=== PATIENT | male | born 1995 | race Caucasian/White ===

== ENCOUNTER 2021-04-27 19:29 | Emergency (ER) | payer OTHER ==
[~2021-04-27] VITALS: Ht 172.7 cm; Wt 69.4 kg
== END 2021-04-27 22:45 | disposition home or self-care (01) ==
LOC: ER 19:29
DX: S06.0X1A Concussion with loss of consciousness of 30 minutes or less, initial encounter (principal); S01.411A Laceration without foreign body of right cheek and temporomandibular area, initial encounter; S46.911A Strain of unspecified muscle, fascia and tendon at shoulder and upper arm level, right arm, initial encounter; W22.8XXA Striking against or struck by other objects, initial encounter; Y92.39 Other specified sports and athletic area as the place of occurrence of the external cause
CPT/HCPCS: 12011; 70450; 73030; 99285-25